=== PATIENT | male | born 1990 | race Caucasian/White ===

== ENCOUNTER 2024-05-03 15:46 | Emergency (ER) | payer MEDICAID ==
[~2024-05-03] VITALS: Ht 170.2 cm; Wt 81.0 kg
[2024-05-03 15:54] VITALS: O2SAT 99
[2024-05-03] MEDS: LIDOCAINE HCL/EPINEPHRINE 1%-EPI 1:100,000 20ML VIAL INFIL ONE (16:15)
[2024-05-03] MEDS: TETANUS, DIPHTHERIA, PERTUSSIS VAC/PF 0.5ML (>10YR OLD) IM ONE (16:40)
[2024-05-03] MEDS: BACITRACIN ZINC OINT UDPKT TOP ONE (17:54)
[2024-05-03] MEDS ORDERED: CEPH500T MT (18:10)
[2024-05-03 18:38] VITALS: BP 138/87; PULSE 88; RESP 18; TEMP 36.83628; O2SAT 99
== END 2024-05-03 18:38 | disposition home or self-care (01) ==
LOC: ER 15:46 → EDBD 15:46 → ER 18:38
DX: S61.201A Unspecified open wound of left index finger without damage to nail, initial encounter (principal); S61.203A Unspecified open wound of left middle finger without damage to nail, initial encounter; S61.205A Unspecified open wound of left ring finger without damage to nail, initial encounter; X58.XXXA Exposure to other specified factors, initial encounter; Y93.89 Activity, other specified; Y92.89 Other specified places as the place of occurrence of the external cause; Y99.8 Other external cause status
CPT/HCPCS: 73120; 90715; 90471; 99283; J3490; Z7610 ×3